=== PATIENT | male | born 1965 | race Caucasian/White ===

== ENCOUNTER 2017-11-08 12:20 | Emergency (ER) | payer MEDICARE ==
[2017-11-08] MEDS ORDERED: LIDOCAINE 2% VISCOUS SOLN 20 ML UDCUP PO ONE (12:55)
[2017-11-08] MEDS ORDERED: HYDROCODONE/ACETAMINOPHEN 5-325 MG (6 TAB/ER DISP) PO PRN (13:14)
--- NOTE | 2017-11-08 13:18 | ER Document Report ---
HPI - HPI Pain Level: 5 Notes: Patient is a 52-year-old male who presents to the ED complaining of left upper dental pain #123 weeks, with swelling that started x1 day. He has not noticed any obvious abscess or purulent discharge. Patient states that he is still able to eat and drink, but does have a decreased p.o. intake due to the pain. He has tried some [id number] meds with minimal relief. No other concerns or complaints. He did speak with his dentist who will be scheduling him for an appointment when he returns in 10 days (he is from [facility]). Denies any headache, fever, head injury, neck pain, hoarseness, drooling, URI, sore throat, chest pain, palpitations, syncope, cough, shortness of breath, wheeze, dyspnea, abdominal pain, nausea/vomiting/diarrhea, urinary retention, dysuria, hematuria , or rash. - ROS Systems Reviewed and Negative: Yes All other systems reviewed and negative Past Medical History - Social History Smoking Status: Unknown if Ever Smoked Family History: Reviewed & Not Pertinent Vertical Provider Document - CONSTITUTIONAL Agree With Documented VS: Yes Notes: PHYSICAL EXAMINATION: GENERAL: Well-appearing, well-nourished and in no acute distress. HEAD: Atraumatic, normocephalic. EYES: Pupils equal round and reactive to light, extraocular movements intact, sclera anicteric, conjunctiva are normal. ENT: EAC clear b/l. TM's intact b/l without erythema, fluid, or perforation. Nares patent and without discharge. oropharynx clear without exudates. No tonsilar hypertrophy or erythema. Moist mucous membranes. No sinus tenderness. Uvula midline. No palatine shift. No tongue protrusion. No respiratory compromise. Mouth: Poor dentition. + severe decay and mild gingivitis throughout. No obvious abscess or discharge noted. + left mild facial swelling. + tenderness to tooth #12. There is no fluctuance with palpation. NECK: Normal range of motion, supple without lymphadenopathy. No rigidity/ meningismus. LUNGS: Breath sounds clear to auscultation bilaterally and equal. No wheezes rales or rhonchi. HEART: Regular rate and rhythm without murmurs, rubs, gallops. NEUROLOGICAL: Cranial nerves grossly intact. Normal speech, normal gait. PSYCH: Normal mood, normal affect. SKIN: Warm, Dry, normal turgor, no rashes or lesions noted. Course - Re-evaluation Re-evalutation: 11/08/17 13:17 Patient is an afebrile, well-hydrated, 52-year-old male who presents to the ED with dental pain, suspect nerve root etiology and infection. Vitals are acceptable. PE is otherwise unremarkable. No I&D, labs, or imaging warranted at this time based on H&P. Viscous lidocaine dispensed today. I will send him home with a prescription for cleocin. Low suspicion for any meningitis, sepsis , peritonsillar/pharyngeal abscess, respiratory compromise, Carlito's, temporal arteritis, or other emergent systemic condition at this time. Patient is aware this condition can change from initial presentation and he needs to monitor symptoms closely. Conservative measures otherwise for symptoms. Call to schedule an appointment with a dentist for further evaluation and management. Recheck with your PCM this week as well. Return to the ED with any worsening/ concerning symptoms otherwise as reviewed in discharge. Patient is in agreement. - Vital Signs Vital signs: Temp Pulse Resp BP Pulse Ox 98.5 F 59 L 18 163/104 H 98 11/08/17 12:24 11/08/17 12:24 11/08/17 12:24 11/08/17 12:24 11/08/17 12:24 Discharge - Discharge Clinical Impression: Pain, dental Condition: Stable Disposition: HOME, SELF-CARE Instructions: Clindamycin ([facility]), Toothache ([facility]) Additional Instructions: Pryor and floss twice daily Maintain fluid intake Take antibiotics as directed Mouthwash, salt water gargles, peroxide rinse as needed Tylenol/ibuprofen as needed Recheck with PCM this week Call today/tomorrow and schedule an appointment with your dentist for further evaluation Return to the ED with any worsening symptoms and/or development of fever, headache, facial swelling, swelling of lips/tongue/throat, trouble swallowing, drooling, hoarseness, neck pain/stiffness, chest pain, palpitations, syncope, shortness of breath, trouble breathing, abdominal pain, n/v/d, numbness/tingling , or other worsening symptoms that are concerning to you. Prescriptions: Clindamycin HCl [Cleocin 300 mg Capsule] 300 mg PO TID #30 capsule Forms: Elevated Blood Pressure Referrals: [facility] [Provider Group] - Follow up as needed
[2017-11-08 14:07] VITALS: BP 172/105
== END 2017-11-08 14:07 | disposition home or self-care (01) ==
LOC: ER 12:20
DX: K02.9 Dental caries, unspecified (principal); K05.10 Chronic gingivitis, plaque induced; K08.89 Other specified disorders of teeth and supporting structures
CPT/HCPCS: 99282; J3490; A9270

== ENCOUNTER 2019-03-28 15:59 | Emergency (ER) | payer MEDICARE ==
[2019-03-28] MEDS ORDERED: DIAZEPAM 5 MG TABLET PO ONE (17:19)
--- NOTE | 2019-03-28 17:25 | ER Document Report ---
ED General - General Chief Complaint: Hip Pain Stated Complaint: HIP PAIN Time Seen by Provider: 03/28/19 17:06 Primary Care Provider: [facility] [Provider Group] - Follow up tomorrow Mode of Arrival: Medic Information source: Patient, Emergency Med Personnel Notes: 53-year-old male with history of back pain hip pain high blood pressure and asthma presents to the emergency department with complaints of right hip pain. Reports he uses a cane to get around. He reports he was doing his laundry went to stand up and slipped on a sock his right leg abducted and he fell back on his right hip. He now complains of right hip pain and spasms. Patient reports he has had multiple orthopedic surgeries in the past. He is scheduled to get another surgery to his hip. He reports he was told to get hip surgery years and years ago but never had it done because he had to have his back surgeries done first.. He has an appoint with the surgeon in [place] at 2:00 tomorrow.. Patient is lying in the bed with ice pack to the right hip. He complains of spasms when he moves his leg. No complaints of fever nausea vomiting diarrhea. Patient did not hit his head when he fell. He recently moved from [place] down to [place] within the past 3 months. - HPI Onset: Just prior to arrival Onset/Duration: Sudden Quality of pain: Achy, Throbbing Associated symptoms: None Exacerbated by: Movement Relieved by: Denies Similar symptoms previously: No Recently seen / treated by doctor: No - Related Data Allergies/Adverse Reactions: No Known Allergies Allergy (Unverified 11/08/17 12:23) Past Medical History - General Information source: Patient - Social History Smoking Status: Unknown if Ever Smoked Cigarette use (# per day): Yes Frequency of alcohol use: None Drug Abuse: None Lives with: Alone Family History: Reviewed & Not Pertinent Patient has suicidal ideation: No Patient has homicidal ideation: No - Past Medical History Cardiac Medical History: Reports: Hx Hypertension Pulmonary Medical History: Reports: Hx Asthma Renal/ Medical History: Denies: Hx Peritoneal Dialysis Past Surgical History: Reports: Hx Appendectomy, Hx Orthopedic Surgery - surgeries- back x4, shoulder left x2, right x3, femur x1 Review of Systems - Review of Systems Notes: Review HPI for review of systems., All other systems negative Physical Exam - Vital signs Vitals: Temp Pulse Resp BP 98.3 F 72 22 H 153/64 H 03/28/19 17:15 03/28/19 17:15 03/28/19 17:15 03/28/19 17:15 - General General appearance: Alert, Anxious In distress: Mild - HEENT Head: Normocephalic Eyes: Normal Conjunctiva: Normal Extraocular movements intact: Yes Neck: Normal, Supple - Respiratory Respiratory status: No respiratory distress Chest status: Nontender Breath sounds: Normal Chest palpation: Normal - Cardiovascular Rhythm: Regular Heart sounds: Normal auscultation Murmur: No - Abdominal Inspection: Normal Tenderness: Nontender - Back Back: Normal - Extremities General upper extremity: Normal ROM Hip: Tender - Right hip tender to palpate no obvious deformity no swelling no erythema good pedal pulse cap refill less than 3 seconds. - Neurological Neuro grossly intact: Yes Cognition: Normal Orientation: AAOx4 [place] Coma Scale Eye Opening: Spontaneous [place] Coma Scale Verbal: Oriented Gwen Coma Scale Motor: Obeys Commands [place] Coma Scale Total: 15 Speech: Normal - Psychological Associated symptoms: Normal affect, Normal mood - Skin Skin Temperature: Warm Skin Moisture: Dry Skin Color: Normal Course - Re-evaluation Re-evalutation: 03/28/19 17:26 This 53-year-old male with history of chronic back pain history of back surgeries x4. Reports he went to stand up utilizing his cane and he slipped on a sock and fell back on his right hip. Patient reports he has been told he needs to have surgery on his right hip. He has an appointment with the surgeon tomorrow.. Denies urinary bowel incontinence or retention. Reports he is having muscle spasms it feels like pressure in his back when he moves. No complaints of fever nausea vomiting diarrhea. Patient is currently taking gabapentin and Motrin for chronic back pain. 03/28/19 18:34 No acute fracture. Discussed TYLER with patient. patient reports he has history of chronic hip pain for many years has been told he has to have a hip surgery for many years but has been putting off because he had problems with his back surgeries. Patient reports spasm feeling better since he received Valium. Patient's son and daughter are here to pick him up. Patient instructed on Valium and Percocet for pain. Instructed to follow-up with orthopedic as scheduled tomorrow at 2. He verbalized understanding. Patient was discharged with crutches. Hip/Pelvis X-Ray 03/28/19 00:00 IMPRESSION: 1. No acute osseous abnormality of the right hip. 2. 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 Correlate clinically for femoroacetabular impingement. 03/28/19 20:29 Dictation of this chart was performed using voice recognition software; therefore, there may be some unintended grammatical errors. - Vital Signs Vital signs: Temp Pulse Resp BP Pulse Ox 97.7 F 72 22 H 146/99 H 100 03/28/19 19:02 03/28/19 19:02 03/28/19 17:15 03/28/19 19:02 03/28/19 19:02 - Diagnostic Test Radiology reviewed: Image reviewed, Reports reviewed Discharge - Discharge Clinical Impression: Right hip pain Condition: Stable Disposition: HOME, SELF-CARE Instructions: Benzodiazepines ([facility]), Oral Narcotic Medication ([facility]) Additional Instructions: *You have been evaluated for right hip pain spasms post fall *Use your cane *Rest/Ice/Elevate your hip *Follow up with the orthopedic surgeon tomorrow as scheduled *Take medication as prescribed *Return to ED for worsening condition, changes, needs Monitor your blood pressure. Your blood pressure was elevated today. This may be because you were anxious, in pain or because you need medication. It is important to follow up with your primary care provider for full evaluation. Prescriptions: Diazepam [Valium 5 mg Tablet] 5 mg PO QHS #5 tablet Oxycodone HCl/Acetaminophen [Percocet 5-325 mg Tablet] 1 tab PO Q6H PRN #10 tab PRN Reason: Forms: Elevated Blood Pressure Referrals: [facility] ([facility] [Provider Group] - Follow up tomorrow
--- NOTE | 2019-03-28 18:04 | RADIOLOGY REPORT (SQ) ---
EXAM DESCRIPTION: HIP RIGHT AP/LATERAL COMPLETED DATE/TIME: 03/28/2019 5:50 pm REASON FOR STUDY: BONE TENDERNESS COMPARISON: None. NUMBER OF VIEWS: Two views. TECHNIQUE: AP pelvis and additional frog-leg view of the right hip. LIMITATIONS: None. FINDINGS: MINERALIZATION: Normal. RIGHT HIP: Pistol multicut line operator deformity of the proximal femur with advanced (for the patient's age) femoroac etabular joint osteoarthrosis. There is no fracture or dislocation. LEFT HIP: Pistol multicut line operator deformity of the proximal femur with advanced (for the patient's age) femoroace tabular joint osteoarthrosis. There is no fracture or dislocation. PUBIS AND ISCHIUM: The ilioischial and iliopectineal lines are intact. There is no diastasis of the pubic symphysis. PELVIS: Intact. SACRUM: The sacrum is obscured by overlying bowel. LOWER LUMBAR SPINE: Fusion hardware in the lumbosacral spine. SOFT TISSUES: No findings. OTHER: No other finding. IMPRESSION: 1. No acute osseous abnormality of the right hip. 2. Pistol-multicut line operator deformities of the proximal femurs with advanced (for the patient's age) bilateral fe moroacetabular joint osteoarthrosis. Correlate clinically for femoroacetabular impingement. TECHNICAL DOCUMENTATION: JOB ID: [id number] [employer]- All Rights Reserved Reading location - IP/workstation name: [email or web address]
[2019-03-28] MEDS ORDERED: IBUPROFEN 800 MG TABLET PO ONE (18:47)
[2019-03-28 19:04] VITALS: BP 146/99
== END 2019-03-28 19:04 | disposition home or self-care (01) ==
LOC: ER 15:59
DX: M25.551 Pain in right hip (principal); M54.9 Dorsalgia, unspecified; R25.2 Cramp and spasm; W01.0XXA Fall on same level from slipping, tripping and stumbling without subsequent striking against object, initial encounter; I10 Essential (primary) hypertension; J45.909 Unspecified asthma, uncomplicated
CPT/HCPCS: 99283; 73502; A9270 ×2

== ENCOUNTER 2019-08-29 20:38 | Emergency (ER) | payer MEDICARE ==
[2019-08-29] MEDS ORDERED: OXYCODONE-ACETAMINOPHEN 5-325 MG TABLET PO ONE (20:45)
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
--- NOTE | 2019-08-29 21:27 | RADIOLOGY REPORT (SQ) ---
2 VIEWS OF RIGHT HUMERUS AND SHOULDER EXAM DATE: 08/29/2019 8:45 PM CDT HISTORY: Arm injury. COMPARISON: None. FINDINGS: No acute fracture or dislocation is seen. The joint spaces are preserved. There are anchor screws in the humeral head from prior rotator cuff repair. IMPRESSION: No acute fracture or malalignment.
[2019-08-29] MEDS ORDERED: HYDROCODONE/ACETAMINOPHEN 5-325 MG (6 TAB/ER DISP) PO PRN (21:50)
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
[2019-08-29 22:25] VITALS: BP 142/92
== END 2019-08-29 22:31 | disposition home or self-care (01) ==
LOC: ER 20:38
DX: S49.91XA Unspecified injury of right shoulder and upper arm, initial encounter (principal); R20.0 Anesthesia of skin; M25.511 Pain in right shoulder; W19.XXXA Unspecified fall, initial encounter; F17.200 Nicotine dependence, unspecified, uncomplicated; I10 Essential (primary) hypertension; J45.909 Unspecified asthma, uncomplicated
CPT/HCPCS: 99283; 73060; 73030; A9270 ×2